=== PATIENT | male | born 1940 | race Caucasian/White ===

== ENCOUNTER 2017-02-15 22:06 | Emergency (ER) | payer OTHER ==
[~2017-02-15] VITALS: Ht 175.3 cm; Wt 88.6 kg
[~2017-02-15 22:06] MED LIST: CIAL5TAB PO; COUM5TAB PO; ENAL20TA81 PO; ENOX100I SC; LIPI80TA16 PO; NORV2.5T11 PO; WARF7.5 PO; [UNRECOGNIZED DRUG - CODE] EX
[2017-02-15 22:11] VITALS: BP 177/95; PULSE 88; RESP 18; TEMP 98.1; O2SAT 96
[2017-02-15] MEDS ORDERED: AMLO5TAB2 PO (22:34)
[2017-02-15] MEDS ORDERED: ATOR40TA16 PO (22:34)
[2017-02-15] MEDS ORDERED: WARF-23 PO (22:34)
[2017-02-15] MEDS ORDERED: ASPI81TA11 PO (22:34)
[2017-02-15] MEDS ORDERED: ISOS30TA3 PO (22:34)
[2017-02-15] MEDS ORDERED: VITA2000 PO (22:34)
[2017-02-15] MEDS ORDERED: ALPR.25 PO (22:34)
[2017-02-15] MEDS ORDERED: LISI-515 PO (22:34)
[2017-02-15] MEDS ORDERED: OXYMETAZOLINE HCL 0.05% 15 ML NASAL SPRAY NASAL ONE (22:45)
[2017-02-15] MEDS ORDERED: SILVER NITR/POTASSIUM NITRATE APPLICATORS TOPICAL ONE (22:45)
--- NOTE | 2017-02-15 23:05 | PD ---
HPI Chief Complaint: Oral / Dental Pain or Problem Time Seen by Provider: 22:34 Travel History International Travel<30 days: No Contact w/Intl Traveler<30days: No Traveled to known affect area: No History of Present Illness HPI 76-year-old male who had oral surgery 2 days ago having one of his right upper molars extracted, here for evaluation of bleeding at surgical site. Patient has history of heart valve replacement and is on Coumadin. His Coumadin was held for the procedure and restarted yesterday along with Lovenox. He has had intermittent bleeding which has been resolving with pressure, however this evening he is unable to achieve hemostasis. PFSH Past Medical History Hx Anticoagulant Therapy: Yes (COUMADIN LOVENOX) Cardiac Catheterization: Yes Cardiovascular Problems: Yes (VALVE) Hypertension: Yes Tetanus Vaccination: Unknown Influenza Vaccination: No Past Surgical History Cardiac Surgery: Yes (AORTIC VALVE REPLACEMENT) Cholecystectomy: Yes (2003) Valve Replacement: Yes (AORTIC VALVE REPLACEMENT / MECHANICAL 2002) Other Surgery: Yes (oral surgery) Social History Alcohol Use: No Tobacco Use: No Substance Use: No Allergies-Medications (Allergen,Severity, Reaction): Coded Allergies: procaine (Unverified Allergy, Severe, 02/15/17) Uncoded Allergies: NOVACAINE (Allergy, Unknown, 01/19/03) Reported Meds & Prescriptions Reported Meds & Active Scripts Active Reported Isosorbide Mononitrate ER (Isosorbide Mononitrate) 30 Mg Abhishek 30 Mg PO DAILY Vitamin D3 (Cholecalciferol) 2,000 Unit Cap 2,000 Units PO DAILY Atorvastatin (Atorvastatin Calcium) 40 Mg Tab 40 Mg PO HS Lisinopril 20 Mg Tab 20 Mg PO DAILY Amlodipine (Amlodipine Besylate) 5 Mg Tab 5 Mg PO DAILY Warfarin 5 Mg Tab 5 Mg PO DAILY Aspirin EC (Aspirin) 81 Mg Tabdr 81 Mg PO DAILY Xanax (Alprazolam) 0.25 Mg Tab 0.25 Mg PO Q8H PRN Review of Systems Except as stated in HPI: all other systems reviewed are Neg Physical Exam Narrative GENERAL: Well-developed, well-nourished, awake, alert, comfortable, no apparent distress. SKIN: Focused skin assessment warm/dry. No pallor. HEAD: Atraumatic. Normocephalic. EYES: Pupils equal and round. No scleral icterus. No injection or drainage. ENT: Mucous membranes pink and moist. Brisk venous oozing from right upper gingiva posterior to tooth #5. CARDIOVASCULAR: Regular rate and rhythm. RESPIRATORY: No accessory muscle use. Clear to auscultation. Breath sounds equal bilaterally. MUSCULOSKELETAL: No obvious deformities. No clubbing. No cyanosis. No edema. NEUROLOGICAL: Awake and alert. No obvious cranial nerve deficits. Motor grossly within normal limits. Normal speech. PSYCHIATRIC: Appropriate mood and affect; insight and judgment normal. Data Data Last Documented VS Vital Signs Date Time Temp Pulse Resp B/P (MAP) Pulse Ox O2 Delivery O2 Flow Rate FiO2 02/15/17 22:11 98.1 88 18 177/95 (122) 96 Orders Orders Oxymetazoline 0.05% Mart[place] (Afrin 0.0 (02/15/17 22:45) Silver Nitrate Applicators (Silver Nitra (02/15/17 22:45) Aminocaproic Acid Inj (Amicar Inj) (02/15/17 23:45) MDM Medical Decision Making Medical Screen Exam Complete: Yes Emergency Medical Condition: Yes Differential Diagnosis Postsurgical dental bleeding, coagulopathy Narrative Course Initial vital signs show heart rate 80, blood pressure 177/95, pulse ox 96% on room air, tympanic temp of 98.1F. There is no lidocaine with epinephrine anywhere in this hospital. Physical this I initially tried to use a small amount of oxymetazoline locally as an attempt to achieve hemostasis. This was unsuccessful. I then used silver nitrate and the bleeding significantly reduced. There is still slight oozing. I was able to discuss the patient's condition with the patient's oral surgeon Dr. Tyler who recommends soaking gauze in [place] and applying ice to the site of bleeding. This was done. Patient will be discharged home and has a cell phone number to his oral surgeon. He will call him in the morning to schedule an appointment for sometime tomorrow. Should the patient have any issues overnight , the oral surgeon would like for the patient to call him. Patient is happy with this plan. He was informed on when to return to the emergency department. Diagnosis Primary Impression: Gingival bleeding Referrals: Oral Maxillofacial Surgeon 1 day Additional Instructions: Follow-up with your oral surgeon tomorrow. Return to the emergency department for worsening symptoms or any other concerns as discussed. Disposition: 01 DISCHARGE HOME Condition: Stable Yoni Saini MD Feb 15, 2017 23:05
[2017-02-15] MEDS ORDERED: AMINOCAPROIC ACID SOLN 250 MG/ML PO ONE (23:30)
[2017-02-15] MEDS ORDERED: AMINOCAPROIC ACID INJ 250 MG/ML 20 ML VIAL OTHER ONE (23:45)
[2017-02-16 00:10] VITALS: BP 166/88
== END 2017-02-16 00:17 | disposition home or self-care (01) ==
LOC: PHED 22:06
DX: K91.841 Postprocedural hemorrhage of a digestive system organ or structure following other procedure (principal); I10 Essential (primary) hypertension; Z88.8 Allergy status to other drugs, medicaments and biological substances; Z79.82 Long term (current) use of aspirin; Z95.2 Presence of prosthetic heart valve; Z79.01 Long term (current) use of anticoagulants; Z79.899 Other long term (current) drug therapy
CPT/HCPCS: 12011

== ENCOUNTER 2017-02-16 04:10 | Emergency (ER) | payer OTHER ==
[~2017-02-16] VITALS: Ht 175.3 cm; Wt 87.6 kg
[~2017-02-16 04:10] MED LIST changes: +ALPR.25 PO; +AMLO5TAB2 PO; +ASPI81TA11 PO; +ATOR40TA16 PO; -CIAL5TAB PO; -COUM5TAB PO; -ENAL20TA81 PO; -ENOX100I SC; +ISOS30TA3 PO; -LIPI80TA16 PO; +LISI-515 PO; -NORV2.5T11 PO; +VITA2000 PO; +WARF-23 PO; -WARF7.5 PO; -[UNRECOGNIZED DRUG - CODE] EX
[2017-02-16 04:16] VITALS: BP 177/82; PULSE 82; RESP 16; TEMP 97.3; O2SAT 96
[2017-02-16] MEDS ORDERED: SILVER NITR/POTASSIUM NITRATE APPLICATORS TOPICAL ONE (04:45)
[2017-02-16] MEDS ORDERED: AMINOCAPROIC ACID INJ 250 MG/ML 20 ML VIAL OTHER ONE (04:45)
[2017-02-16] MEDS ORDERED: AMINOCAPROIC ACID INJ 5,000 MG in SODIUM CHLOR 0.9% 250 ML INJ 230 ML IV ONE (04:45)
[2017-02-16 04:49] LABS: AUTOMATED NEUTROPHIL # 3.3 TH/MM3 (1.8-7.7); BASOPHIL # 0.1 TH/MM3 (0-0.2); BASOPHIL % 1.1 % (0.0-2.0); EOSINOPHIL # 0.2 TH/MM3 (0-0.4); EOSINOPHIL % 2.6 % (0.0-4.0); HEMATOCRIT 43.2 % (39.0-51.0); HEMO FLAGS DIFF FINAL; LYMPH % 30.2 % (9.0-44.0); MEAN CELL VOLUME 93.5 FL (80.0-100.0); MEAN CORPUSCULAR HEMOGLOBIN 31.4 PG (27.0-34.0); MEAN CORPUSCULAR HGB CONC 33.6 % (32.0-36.0); MONO % 15.4 % (0.0-8.0); NEUT % 50.7 % (16.0-70.0); PLATELET COUNT 286 TH/MM3 (150-450); RED BLOOD COUNT 4.62 MIL/MM3 (4.50-5.90); RED CELL DISTRIBUTION WIDTH 12.4 % (11.6-17.2); WHITE BLOOD COUNT 6.6 TH/MM3 (4.0-11.0)
--- NOTE | 2017-02-16 04:51 | PD ---
HPI Chief Complaint: Bleeding Time Seen by Provider: 04:22 Travel History International Travel<30 days: No Contact w/Intl Traveler<30days: No Traveled to known affect area: No History of Present Illness HPI The patient is a 76-year-old male who had oral surgery about 3 days ago with one of the right upper molars extracted. He was bleeding at the surgical site. The patient came here earlier yesterday and using silver nitrate and am a they stop the bleeding adequately. There was some oozing still. The oral surgeon, Dr. Tyler, was called yesterday and the patient was discharged home with a neurosurgeon's phone number. The plan was to call the oral surgeon if he had any problems overnight. The patient takes to the oral surgeon but did not call them. The patient had bleeding tonight and used tea bags to stop the bleeding and by the time he got to the emergency department the bleeding had slowed to almost a complete stop. The patient states he has white coat syndrome and his pressure on his goes up when he goes to the emergency department. PFSH Past Medical History Hx Anticoagulant Therapy: Yes (COUMADIN LOVENOX) Cardiac Catheterization: Yes Cardiovascular Problems: Yes (VALVE) Hypertension: Yes Tetanus Vaccination: Unknown Influenza Vaccination: No Past Surgical History Cardiac Surgery: Yes (AORTIC VALVE REPLACEMENT) Cholecystectomy: Yes (2003) Valve Replacement: Yes (AORTIC VALVE REPLACEMENT / MECHANICAL 2002) Other Surgery: Yes (oral surgery) Social History Alcohol Use: No Tobacco Use: No Substance Use: No Allergies-Medications (Allergen,Severity, Reaction): Coded Allergies: procaine (Unverified Allergy, Severe, 02/16/17) Uncoded Allergies: NOVACAINE (Allergy, Unknown, 01/19/03) Reported Meds & Prescriptions Reported Meds & Active Scripts Active Reported Isosorbide Mononitrate ER (Isosorbide Mononitrate) 30 Mg Abhishek 30 Mg PO DAILY Vitamin D3 (Cholecalciferol) 2,000 Unit Cap 2,000 Units PO DAILY Atorvastatin (Atorvastatin Calcium) 40 Mg Tab 40 Mg PO HS Lisinopril 20 Mg Tab 20 Mg PO DAILY Amlodipine (Amlodipine Besylate) 5 Mg Tab 5 Mg PO DAILY Warfarin 5 Mg Tab 5 Mg PO DAILY Aspirin EC (Aspirin) 81 Mg Tabdr 81 Mg PO DAILY Xanax (Alprazolam) 0.25 Mg Tab 0.25 Mg PO Q8H PRN Review of Systems Except as stated in HPI: all other systems reviewed are Neg Physical Exam Narrative GENERAL: Well-nourished, well-developed patient in no apparent distress. His blood pressure is 177/82 but the rest the vital signs are normal. SKIN: Focused skin assessment warm/dry. HEAD: Normocephalic. EYES: No scleral icterus. No injection or drainage. NECK: Supple, trachea midline. No JVD or lymphadenopathy. CARDIOVASCULAR: Regular rate and rhythm without murmurs, gallops, or rubs. RESPIRATORY: Breath sounds equal bilaterally. No accessory muscle use. GASTROINTESTINAL: Abdomen soft, non-tender, nondistended. MUSCULOSKELETAL: No cyanosis, or edema. BACK: Nontender without obvious deformity. No CVA tenderness. DENTAL: No loose or chipped teeth. No malocclusion. There is a socket on tooth #5 that was bleeding. There is no bleeding now or at least minimal bleeding. There is a Tea bag in place. Data Data Last Documented VS Vital Signs Date Time Temp Pulse Resp B/P (MAP) Pulse Ox O2 Delivery O2 Flow Rate FiO2 02/16/17 04:16 97.3 82 16 177/82 (113) 96 Orders Orders Silver Nitrate Applicators (Silver Nitra (02/16/17 04:45) Complete Blood Count With Diff (02/16/17 04:33) Basic Metabolic Panel (Bmp) (02/16/17 04:33) Prothrombin Time / Inr (Pt) (02/16/17 04:33) Act Partial Throm Time (Ptt) (02/16/17 04:33) Aminocaproic Acid Inj (Amicar Inj) (02/16/17 04:45) MDM Medical Decision Making Medical Screen Exam Complete: Yes Emergency Medical Condition: Yes Medical Record Reviewed: Yes Differential Diagnosis Coagulopathy, bleeding from tooth #5 socket, bleeding controlled from tooth #5 socket Narrative Course Patient adequately controlled his bleeding from the socket of tooth #5. He did this using pressure/teabags. He is to follow up with his appointment later on this morning with the oral surgeon. We shalom coagulation studies tonight in case neurosurgeon needs these. They will not change our treatment. Diagnosis Primary Impression: Surgical wound hemorrhage after dental procedure Additional Instructions: As we discussed, follow-up with her dentist later on this morning. Continue to use the pressure with the teabags as you have successfully controlled the bleeding herself at home. Med/Other Pt SpecificInfo: No Change to Meds Disposition: 01 DISCHARGE HOME Condition: Stable Markie Sky MD Feb 16, 2017 04:50
[2017-02-16 04:57] LABS: POTASSIUM 3.9 MEQ/L (3.5-5.1)
[2017-02-16 05:00] LABS: BICARBONATE 25.3 MEQ/L (21.0-32.0)
[2017-02-16 05:01] LABS: APTT (PATIENT) 36.5 SEC (24.3-30.1); INTERNATIONAL NORMALIZED RATIO 1.1 RATIO; PROTHROMBIN TIME - PATIENT 12.3 SEC (9.8-11.6)
== END 2017-02-16 04:57 | disposition home or self-care (01) ==
LOC: PHED 04:10
DX: K91.840 Postprocedural hemorrhage of a digestive system organ or structure following a digestive system procedure (principal); I10 Essential (primary) hypertension; Z79.01 Long term (current) use of anticoagulants; Z95.2 Presence of prosthetic heart valve
CPT/HCPCS: 80048; 85025; 85610; 85730; 99283